=== PATIENT | female | born 1965 | race African-American/Black ===

== ENCOUNTER 2018-10-28 12:37 | Emergency (ER) | payer MEDICARE, OTHER, SELFPAY ==
[2018-10-28 12:40] VITALS: BP 127/84; PULSE 82; RESP 21; TEMP 36.6; O2SAT 97; BMI 35.3
--- NOTE | 2018-10-28 12:56 | DI.US.S_ITS ---
PROCEDURE: US ABDOMEN COMPLETE INDICATIONS: RUQ/EPIGASTRIC PAIN TECHNIQUE: Real-time scanning was performed of the abdominal and retroperitoneal organs, with image documentation. COMPARISON: None. FINDINGS: Liver: Normal in size and echogenicity. No focal liver lesions. Gallbladder: Within normal limits. No cholelithiasis. Biliary ducts: Intrahepatic bile ducts are non-dilated. Extrahepatic bile duct caliber measures 3 mm. Normal is 6-7 mm or less in diameter, or 10 mm or less post-cholecystectomy. Pancreas: Visualized portions of the pancreas are sonographically normal. Spleen: Spleen is normal in size and homogeneous in echotexture. Kidneys: Kidneys are normal in size and echotexture. Right kidney measures 10.0 cm long; left kidney measures 8.4 cm long. No hydronephrosis or nephrolithiasis. No solid masses. Aorta: Visualized aorta is normal in caliber at less than 3 cm. Iliacs: Obscured by bowel gas. IVC: Intrahepatic inferior vena cava is patent. Miscellaneous: No free abdominal fluid. IMPRESSION: No sonographic source for the patient's right upper quadrant pain is evident. There is no cholelithiasis, evidence of cholecystitis, or hydronephrosis. The need for further evaluation utilizing CT may be determined clinically. Dictated by: Migue Olson M.D. on 10/28/2018 at 13:06 Approved by: Migue Olson M.D. on 10/28/2018 at 13:07
--- NOTE | 2018-10-28 13:01 | ED_ITS ---
HPI - Nausea/Vomiting/Diarrhea <RUTHY Holliday - Last Filed: 10/28/18 22:22> General Chief complaint: Nausea/Vomiting/Diarrhea Stated complaint: Throwing up, stomach pains, thrush, rash Time Seen by Provider: 10/28/18 12:39 Source: patient Mode of arrival: ambulatory Limitations: no limitations History of Present Illness HPI Narrative: 52-year-old female with a history of asthma that is a nonsmoker here for complaint of having nausea vomiting that started earlier this morning. She states she is having a hard time keeping down fluids. She also reports having epigastric/right upper quadrant pain that started about the same timeframe. She reports that she has had a fever and chills during the same timeframe. She reports having generalized body aches. She has also had a cough however she thinks this may be due to her asthma. No nasal congestion. She reports having a mild headache as well. She denies any urinary symptoms. She reports having a bowel movement earlier today but was diarrhea. She denies any stressors or relievers of her symptoms. No other concerns or complaints this timeframe. MD complaint: nausea, vomiting, diarrhea and abdominal pain Related Data Previous Rx's Medication Instructions Recorded ondansetron 4 mg PO TID-QID PRN #12 tab 10/28/18 Allergies Allergy/AdvReac Type Severity Reaction Status Date / Time Iodinated Contrast- Oral and Allergy Verified 10/28/18 12:48 IV Dye Review of Systems <RUTHY Holliday - Last Filed: 10/28/18 22:22> Constitutional Reports chills, Reports fever(s), Denies lethargy and Denies weakness Eyes Denies change in vision, Denies eye discharge, Denies irritation and Denies loss of vision ENT Ears, Nose, Mouth, and Throat: Denies change in voice, Denies neck pain and De nies sore throat Cardiovascular Denies chest pain, Denies irregular heart rhythm, Denies lightheadedness, Denies palpitations, Denies dyspnea, Denies dyspnea on exertion and Denies orthopnea Respiratory Denies cough, Denies dyspnea, Denies dyspnea on exertion and Denies wheezing Gastrointestinal Gastrointestinal: Reports abdominal pain, Reports nausea and Reports vomiting Genitourinary Denies hematuria, Denies flank pain, Denies urinary incontinence and Denies urinary urgency Musculoskeletal Denies neck pain Integumentary/Breasts Denies pruritus, Denies erythema, Denies rash and Denies wounds Neurologic Denies confusion, Denies loss of vision and Denies weakness Psychiatric Denies anxiety, Denies confusion, Denies depression, Denies homicidal ideation and Denies suicidal ideation Endocrine Denies palpitations Allergic/Immunologic Denies wheezing PFSH <RUTHY Holliday - Last Filed: 10/28/18 22:22> Social History Smoking Status: Former smoker Social History Smoking Status: Former smoker Exam <RUTHY Holliday - Last Filed: 10/28/18 22:22> Initial Vital Signs Initial Vital Signs: Vital Signs Temperature 97.9 F 10/28/18 12:40 Pulse Rate 82 10/28/18 12:40 Respiratory Rate 21 10/28/18 12:40 Blood Pressure 127/84 10/28/18 12:40 Pulse Oximetry 97 10/28/18 12:40 Const General: cooperative and well developed Nutritional Appearance: well nourished Orientation: alert, awake, oriented x3 and not confused [facility] Mouth: oral mucosae normal and moist mucous membranes Eyes Conjunctivae: conjunctivae normal Sclera: sclerae normal Pupils: PERRL EOM: EOM intact bilaterally Resp Effort & Inspection: normal respiratory effort, able to speak in complete sentences, no respiratory distress and no use of accessory muscles Auscultation: rales, no rhonchi and no wheezes Cardio Rate: regular rate Rhythm: regular rhythm Heart Sounds: no click, no gallops, no murmurs and no rubs GI Inspection: non-distended Palpation: soft, no hepatosplenomegaly, No guarding, No pulsatile mass and tender (Tenderness right upper quadrant) Auscultation: normal bowel sounds General: No CVA tenderness Skin General: no rashes or lesions noted, No jaundice and No petechiae Neuro General: alert, oriented x3, gait normal and no focal motor deficits Speech: speech normal <Kiarra Dorman DO - Last Filed: 10/29/18 09:51> Initial Vital Signs Initial Vital Signs: Vital Signs Temperature 97.9 F 10/28/18 12:40 Pulse Rate 82 10/28/18 12:40 Respiratory Rate 21 10/28/18 12:40 Blood Pressure 127/84 10/28/18 12:40 Pulse Oximetry 97 10/28/18 12:40 Course <RUTHY Holliday - Last Filed: 10/28/18 22:22> Orders Ordered: Discontinued Medications Hydromorphone HCl (Dilaudid) 0.5 mg IV NOW ONE Stop: 10/28/18 12:57 Last Admin: 10/28/18 13:34 Dose: 0.5 mg Sodium Chloride (Normal Saline 0.9%) 1,000 mls @ 1,000 mls/hr IV BOLUS ONE Stop: 10/28/18 13:55 Last Infusion: 10/28/18 14:54 Dose: 0 mls/hr Admin: 10/28/18 13:35 Dose: 1,000 mls/hr Ondansetron HCl (Zofran) 4 mg IV NOW ONE Stop: 10/28/18 13:40 Last Admin: 10/28/18 13:40 Dose: 4 mg Vital Signs - 8 hr 10/28/18 12:40 10/28/18 13:37 Temperature 97.9 F Pulse Rate 82 81 Respiratory Rate 21 18 Blood Pressure 127/84 Blood Pressure [Right Arm] 133/88 Pulse Oximetry 97 99 <Kiarra Dorman DO - Last Filed: 10/29/18 09:51> Orders Ordered: Discontinued Medications Hydromorphone HCl (Dilaudid) 0.5 mg IV NOW ONE Stop: 10/28/18 12:57 Last Admin: 10/28/18 13:34 Dose: 0.5 mg Sodium Chloride (Normal Saline 0.9%) 1,000 mls @ 1,000 mls/hr IV BOLUS ONE Stop: 10/28/18 13:55 Last Infusion: 10/28/18 14:54 Dose: 0 mls/hr Admin: 10/28/18 13:35 Dose: 1,000 mls/hr Ondansetron HCl (Zofran) 4 mg IV NOW ONE Stop: 10/28/18 13:40 Last Admin: 10/28/18 13:40 Dose: 4 mg Vital Signs - 8 hr 10/28/18 12:40 10/28/18 13:37 Temperature 97.9 F Pulse Rate 82 81 Respiratory Rate 21 18 Blood Pressure 127/84 Blood Pressure [Right Arm] 133/88 Pulse Oximetry 97 99 MDM - Nausea/Vomiting/Diarrhea <RUTHY Holliday - Last Filed: 10/28/18 22:22> Lab Data Result diagrams: 10/28/18 13:05 10/28/18 13:05 Lab Results 10/28/18 10/28/18 10/28/18 Range/Units 13:05 13:05 13:05 WBC 7.2 (4.5-11.0) X10^3/uL RBC 4.50 (4.0-5.2) X10^6/uL Hgb 12.9 (12.0-16.0) g/dL Hct 39.3 (36-46) % MCV 87.1 (80-100) fL MCH 28.7 (26-34) PG MCHC 33.0 (30-36) % RDW 14.7 (11.6-14.8) % Plt Count 191 (150-400) X10^3/uL Neut % (Auto) 94.2 H (50-75) % Lymph % (Auto) 2.5 L (25-40) % [place] % (Auto) 2.4 L (3-14) % Eos % (Auto) 0.5 L (2-4) % Baso % (Auto) 0.4 (0-2) % Neut # (Auto) 6800 (4163-7535) /uL Lymph # (Auto) 200 L (5389-7147) /uL [place] # (Auto) 200 (0-900) /uL Eos # (Auto) 0 (0-450) /uL Baso # (Auto) 0 (0-100) /uL Sodium 141 (137-145) mmol/L Potassium 3.8 (3.4-5.1) mmol/L Chloride 109 H (98-107) mmol/L Carbon Dioxide 21 L (22-32) mmol/L BUN 14 (7-17) mg/dL Creatinine 0.80 (0.52-1.04) mg/dL Estimated GFR > 60.0 (>60) mL/min BUN/Creatinine Ratio 17.5 (6-22) Glucose 88 (70-100) mg/dL Lactate (0.7-2.1) mmol/L Calcium 8.7 (8.4-10.2) mg/dL Total Bilirubin 1.3 (0.2-1.3) mg/dL AST 28 (14-36) IU/L ALT 25 (9-52) IU/L Alkaline Phosphatase 65 (38-126) U/L Total Protein 7.7 (6.3-8.2) g/dL Albumin 4.2 (3.5-5.0) g/dL Globulin 3.5 (1.7-4.1) g/dL Albumin/Globulin Ratio 1.2 (1.0-2.8) Lipase 71 (23-300) U/L Procalcitonin 0.06 (<0.5) ng/mL Influenza A & B (PCR) (Negative) 10/28/18 10/28/18 Range/Units 13:05 13:05 WBC (4.5-11.0) X10^3/uL RBC (4.0-5.2) X10^6/uL Hgb (12.0-16.0) g/dL Hct (36-46) % MCV (80-100) fL MCH (26-34) PG MCHC (30-36) % RDW (11.6-14.8) % Plt Count (150-400) X10^3/uL Neut % (Auto) (50-75) % Lymph % (Auto) (25-40) % [place] % (Auto) (3-14) % Eos % (Auto) (2-4) % Baso % (Auto) (0-2) % Neut # (Auto) (0675-1429) /uL Lymph # (Auto) (4681-2609) /uL [place] # (Auto) (0-900) /uL Eos # (Auto) (0-450) /uL Baso # (Auto) (0-100) /uL Sodium (137-145) mmol/L Potassium (3.4-5.1) mmol/L Chloride (98-107) mmol/L Carbon Dioxide (22-32) mmol/L BUN (7-17) mg/dL Creatinine (0.52-1.04) mg/dL Estimated GFR (>60) mL/min BUN/Creatinine Ratio (6-22) Glucose (70-100) mg/dL Lactate 0.9 (0.7-2.1) mmol/L Calcium (8.4-10.2) mg/dL Total Bilirubin (0.2-1.3) mg/dL AST (14-36) IU/L ALT (9-52) IU/L Alkaline Phosphatase (38-126) U/L Total Protein (6.3-8.2) g/dL Albumin (3.5-5.0) g/dL Globulin (1.7-4.1) g/dL Albumin/Globulin Ratio (1.0-2.8) Lipase (23-300) U/L Procalcitonin (<0.5) ng/mL Influenza A & B (PCR) Negative (Negative) Urine Dip Bedside Urine Glucose Negative Bedside Urine Bilirubin - Negative Bedside Urine Ketone +/- 5 Urine Specific [place] 1.025 Bedside Urine Occult Blood - Negative Bedside Urine pH 5.5 Bedside Urine Protein + 30 Bedside Urine Nitrite - Negative Bedside Urine Leukocytes - Negative Esterase Imaging Data US - abdomen: Radiologist's impression: [address] [place] [id number] Ultrasound Report Signed Patient: Danica Hathaway LMR#: [id number] : 1965Acct:[id number] Age/Sex: 52 / FDate of Service: 10/28/18 Loc: ED Accession Number: [id number] Procedure: US abdomen complete Ordering Provider: Moris York PROCEDURE: US ABDOMEN COMPLETE INDICATIONS: RUQ/EPIGASTRIC PAIN TECHNIQUE: Real-time scanning was performed of the abdominal and retroperitoneal organs, with image documentation. COMPARISON: None. FINDINGS: Liver: Normal in size and echogenicity. No focal liver lesions. Gallbladder: Within normal limits. No cholelithiasis. Biliary ducts: Intrahepatic bile ducts are non-dilated. Extrahepatic bile duct caliber measures 3 mm. Normal is 6-7 mm or less in diameter, or 10 mm or less post-cholecystectomy. Pancreas: Visualized portions of the pancreas are sonographically normal. Spleen: Spleen is normal in size and homogeneous in echotexture. Kidneys: Kidneys are normal in size and echotexture. Right kidney measures 10.0 cm long; left kidney measures 8.4 cm long. No hydronephrosis or nephrolithiasis. No solid masses. Aorta: Visualized aorta is normal in caliber at less than 3 cm. Iliacs: Obscured by bowel gas. IVC: Intrahepatic inferior vena cava is patent. Miscellaneous: No free abdominal fluid. IMPRESSION: No sonographic source for the patient's right upper quadrant pain is evident. There is no cholelithiasis, evidence of cholecystitis, or hydronephrosis. The need for further evaluation utilizing CT may be determined clinically. Dictated by: Migue Olson M.D. on 10/28/2018 at 13:06 Approved by: Migue Olson M.D. on 10/28/2018 at 13:07 [facility] Narrative Medical decision making narrative: Abdominal ultrasound was obtained was negative for any acute findings. CBC and Chem panel were obtained and were unremarkable. Urinalysis was negative for urinary tract infection. Lipase was unremarkable. Influenza swab was obtained was also negative. Will treat as a viral illness with Zofran to help with nausea vomiting. For any worsening symptoms return to the emergency room. Follow up with primary care provider. <Kiarra Dorman DO - Last Filed: 10/29/18 09:51> Lab Data Lab Results 10/28/18 10/28/18 10/28/18 Range/Units 13:05 13:05 13:05 WBC 7.2 (4.5-11.0) X10^3/uL RBC 4.50 (4.0-5.2) X10^6/uL Hgb 12.9 (12.0-16.0) g/dL Hct 39.3 (36-46) % MCV 87.1 (80-100) fL MCH 28.7 (26-34) PG MCHC 33.0 (30-36) % RDW 14.7 (11.6-14.8) % Plt Count 191 (150-400) X10^3/uL Neut % (Auto) 94.2 H (50-75) % Lymph % (Auto) 2.5 L (25-40) % [place] % (Auto) 2.4 L (3-14) % Eos % (Auto) 0.5 L (2-4) % Baso % (Auto) 0.4 (0-2) % Neut # (Auto) 6800 (1936-4675) /uL Lymph # (Auto) 200 L (5186-0673) /uL [place] # (Auto) 200 (0-900) /uL Eos # (Auto) 0 (0-450) /uL Baso # (Auto) 0 (0-100) /uL Sodium 141 (137-145) mmol/L Potassium 3.8 (3.4-5.1) mmol/L Chloride 109 H (98-107) mmol/L Carbon Dioxide 21 L (22-32) mmol/L BUN 14 (7-17) mg/dL Creatinine 0.80 (0.52-1.04) mg/dL Estimated GFR > 60.0 (>60) mL/min BUN/Creatinine Ratio 17.5 (6-22) Glucose 88 (70-100) mg/dL Lactate (0.7-2.1) mmol/L Calcium 8.7 (8.4-10.2) mg/dL Total Bilirubin 1.3 (0.2-1.3) mg/dL AST 28 (14-36) IU/L ALT 25 (9-52) IU/L Alkaline Phosphatase 65 (38-126) U/L Total Protein 7.7 (6.3-8.2) g/dL Albumin 4.2 (3.5-5.0) g/dL Globulin 3.5 (1.7-4.1) g/dL Albumin/Globulin Ratio 1.2 (1.0-2.8) Lipase 71 (23-300) U/L Procalcitonin 0.06 (<0.5) ng/mL Influenza A & B (PCR) (Negative) 10/28/18 10/28/18 Range/Units 13:05 13:05 WBC (4.5-11.0) X10^3/uL RBC (4.0-5.2) X10^6/uL Hgb (12.0-16.0) g/dL Hct (36-46) % MCV (80-100) fL MCH (26-34) PG MCHC (30-36) % RDW (11.6-14.8) % Plt Count (150-400) X10^3/uL Neut % (Auto) (50-75) % Lymph % (Auto) (25-40) % [place] % (Auto) (3-14) % Eos % (Auto) (2-4) % Baso % (Auto) (0-2) % Neut # (Auto) (2119-9852) /uL Lymph # (Auto) (9774-7046) /uL [place] # (Auto) (0-900) /uL Eos # (Auto) (0-450) /uL Baso # (Auto) (0-100) /uL Sodium (137-145) mmol/L Potassium (3.4-5.1) mmol/L Chloride (98-107) mmol/L Carbon Dioxide (22-32) mmol/L BUN (7-17) mg/dL Creatinine (0.52-1.04) mg/dL Estimated GFR (>60) mL/min BUN/Creatinine Ratio (6-22) Glucose (70-100) mg/dL Lactate 0.9 (0.7-2.1) mmol/L Calcium (8.4-10.2) mg/dL Total Bilirubin (0.2-1.3) mg/dL AST (14-36) IU/L ALT (9-52) IU/L Alkaline Phosphatase (38-126) U/L Total Protein (6.3-8.2) g/dL Albumin (3.5-5.0) g/dL Globulin (1.7-4.1) g/dL Albumin/Globulin Ratio (1.0-2.8) Lipase (23-300) U/L Procalcitonin (<0.5) ng/mL Influenza A & B (PCR) Negative (Negative) Urine Dip Bedside Urine Glucose Negative Bedside Urine Bilirubin - Negative Bedside Urine Ketone +/- 5 Urine Specific [place] 1.025 Bedside Urine Occult Blood - Negative Bedside Urine pH 5.5 Bedside Urine Protein + 30 Bedside Urine Nitrite - Negative Bedside Urine Leukocytes - Negative Esterase Discharge Plan Departure Patient Disposition: Home Clinical Impression: Nausea & vomiting Qualifiers: Vomiting type: unspecified Vomiting Intractability: non-intractable Qualified Code(s): R11.2 - Nausea with vomiting, unspecified Discharge Date/Time: 10/28/18 14:55 Interventions: ED Discharge Assessment Last Done: 10/28/18 14:54 Instructions: DI for Vomiting -- Adult Activity Restrictions/Additional Instructions: Laboratory results and imaging today were unremarkable. Signs and symptoms presents as a viral illness. You are prescribed Zofran to help with nausea vomiting use as directed. Slowly advance diet as tolerated. Plenty of fluids. For any worsening symptoms return to the emergency room. Follow up with primary care provider. Prescriptions: New ondansetron 4 mg tablet,disintegrating 4 mg PO TID-QID PRN (Reason: nausea and vomiting) Qty: 12 RF: 0 Referrals: [facility] [Provider Group] <Kiarra Dorman DO - Last Filed: 10/29/18 09:51> Cosign ED Attending Pamela Attestation: I was immediately available in the department for consultation. Documentation has been reviewed. I agree with assessment and plan.
[2018-10-28 13:14] LABS: Add Manual Diff / Slide Review NO; Basophils Absolute Auto 0 /uL (0-100); Basophils Percent Auto 0.4 % (0-2); Eosinophils Absolute Auto 0 /uL (0-450); Eosinophils Percent Auto 0.5 % (2-4); Hematocrit 39.3 % (36-46); Hemoglobin 12.9 g/dL (12.0-16.0); Lymphocytes Absolute Auto 200 /uL (1100-4500); Lymphocytes Percent Auto 2.5 % (25-40); Mean Corpuscular Hemoglobin 28.7 PG (26-34); Mean Corpuscular Volume 87.1 fL (80-100); Monocytes Absolute Auto 200 /uL (0-900); Monocytes Percent Auto 2.4 % (3-14); Neutrophils Absolute Auto 6800 /uL (1500-7000); Neutrophils Percent Auto 94.2 % (50-75); Platelet Count 191 X10^3/uL (150-400); Red Cell Distribution Width 14.7 % (11.6-14.8); White Blood Cell Count 7.2 X10^3/uL (4.5-11.0)
[2018-10-28 13:15] VITALS: BP 129/84; PULSE 80; O2SAT 98
[2018-10-28 13:27] LABS: Alanine Aminotransferase 25 IU/L (9-52); Albumin 4.2 g/dL (3.5-5.0); Albumin Globulin Ratio 1.2 (1.0-2.8); Alkaline Phosphatase 65 U/L (38-126); Aspartate Aminotransferase 28 IU/L (14-36); BUN Creatinine Ratio 17.5 (6-22); Bilirubin Total 1.3 mg/dL (0.2-1.3); Blood Urea Nitrogen 14 mg/dL (7-17); Calcium 8.7 mg/dL (8.4-10.2); Carbon Dioxide 21 mmol/L (22-32); Chloride 109 mmol/L (98-107); Estimated Glomerular Filt Rate > 60.0 mL/min (>60); Globulin 3.5 g/dL (1.7-4.1); Glucose 88 mg/dL (70-100); HEMOLYSIS 25 (0-50); Lipase 71 U/L (23-300); Potassium 3.8 mmol/L (3.4-5.1); Sodium 141 mmol/L (137-145); Total Protein 7.7 g/dL (6.3-8.2)
[2018-10-28 13:28] LABS: Influenza A and B by PCR Rapid Negative (Negative); Lactate (Lactic Acid) 0.9 mmol/L (0.7-2.1)
[2018-10-28] MEDS: HYDROMORPHONE 1 MG INJ 0.5 MG IV (13:34)
[2018-10-28] MEDS: SODIUM CHLORIDE 0.9% 1,000 ML 1000 ML IV (13:35)
[2018-10-28 13:37] VITALS: BP 133/88; PULSE 81; RESP 18; O2SAT 99
[2018-10-28] MEDS: ONDANSETRON 4 MG/2 ML INJ IV (13:40)
[2018-10-28 13:58] LABS: Procalcitonin 0.06 ng/mL (<0.5)
[2018-10-28 14:00] VITALS: BP 134/83; PULSE 70; RESP 16; O2SAT 98
== END 2018-10-28 14:55 | disposition home or self-care (01) ==
PROVIDERS: Emergency Provider Nurse Practitioner Family
DX: R11.2 Nausea with vomiting, unspecified (principal); R10.9 Unspecified abdominal pain
CPT/HCPCS: 36591; 76700; 80053; 81003; 83605; 83690; 84145; 85025; 87400; 96361; 96374; 96375; 99283; 99284; J1170; J2405

== ENCOUNTER 2018-10-30 11:53 | Emergency (ER) | payer MEDICARE, OTHER, SELFPAY ==
[2018-10-30 12:12] VITALS: BP 127/89; PULSE 79; RESP 18; TEMP 37.7; O2SAT 100
[2018-10-30 12:43] VITALS: BP 141/93; PULSE 68; O2SAT 99
--- NOTE | 2018-10-30 13:03 | ED_ITS ---
HPI - Abdominal Pain <Jennifer Carlislemer, MANAGEMENT PLANNER-BC - Last Filed: 10/30/18 18:02> General Chief Complaint: Abdominal Pain Stated Complaint: stomach, not holding anything down,headache,nausea Time Seen by Provider: 10/30/18 12:45 Source: patient Mode of arrival: ambulatory Limitations: no limitations History of Present Illness HPI narrative: Patient is a 52-year-old female former smoker with history of rheumatoid arthritis who is a nonsmoker who presents by herself for a chief complaint of abdominal pain vomiting and diarrhea. She states she is unable to keep anything down, take eating any makes her have diarrhea. She was seen here at this facility on 10/28 and discharged with prescription of Zofran as she tested negative for the flu, had normal lab work. She states that the Zofran is making her stomach hurt worse, so she is not taking it. She denies any fevers, but checks in with a temperature of 99.9?. She denies any chest pain or shortness of breath. she states that her abdominal pain is all over, her entire stomach. Related Data Home Medications Medication Instructions Recorded Confirmed adalimumab [Humira Pen] 40 mg SUBCUT DIRECTED 10/30/18 10/30/18 albuterol sulfate [ProAir HFA] 10/30/18 beclomethasone dipropionate [QNASL] 10/30/18 diclofenac sodium 75 mg PO BID 10/30/18 10/30/18 fluticasone furoate-vilanterol 10/30/18 [Breo Ellipta] folic acid 1 mg PO DAILY 10/30/18 10/30/18 hydrocortisone 1 applic TOPICAL TID 10/30/18 10/30/18 medroxyprogesterone 10/30/18 montelukast 10 mg PO DAILY 10/30/18 10/30/18 naloxone [Narcan] 10/30/18 nystatin 10/30/18 oxycodone 30 mg PO QID 10/30/18 10/30/18 oxycodone [OxyContin] 60 mg PO BID 10/30/18 10/30/18 paroxetine HCl 10 mg PO DAILY 10/30/18 10/30/18 Previous Rx's Medication Instructions Recorded ondansetron 4 mg PO TID-QID PRN #12 tab 10/28/18 prednisone 50 mg PO DAILY #5 tab 10/30/18 promethazine 25 mg PO Q4-6H PRN #20 tab 10/30/18 Allergies Allergy/AdvReac Type Severity Reaction Status Date / Time Iodinated Contrast- Oral and Allergy Intermediate Hives Verified 10/30/18 12:16 IV Dye Review of Systems <OSVALDO Garcia - Last Filed: 10/30/18 18:02> Review of Systems GENERAL: See HPI HEENT: Denies sinus pain, ear pain, sore throat, difficulty swallowing, dizziness. RESPIRATORY: Denies dyspnea, cough, wheezing, hemoptysis, sputum. CARDIOVASCULAR: Denies chest pain, palpitations, orthopnea, edema, GASTROINTESTINAL: See HPI : Denies dysuria, frequency, incontinence, hematuria, urinary retention. MUSCULOSKELETAL: denies weakness, joint pain, or bony pain SKIN: Denies rash, skin lesions, or other NEUROLOGIC: Denies weakness, headache, numbness, change in speech, confusion, seizures, incoordination. PSYCHIATRIC: No concerning psychosocial issues. 12 point review of systems is negative except for those stated above PFSH <OSVALDO Garcia - Last Filed: 10/30/18 18:02> Medical History (Updated 10/30/18 @ 16:45 by OSVALDO Garcia) Rheumatoid arteritis (Acute) Social History Smoking Status: Former smoker Social History Smoking Status: Former smoker Exam <OSVALDO Garcia - Last Filed: 10/30/18 18:02> Narrative Exam Narrative: GENERAL: This is a well-nourished, well-developed patient, lying on stretcher HEAD: Atraumatic. Normocephalic. No temporal or scalp tenderness. EYES: Pupils equal round and reactive. Extraocular motions intact. No scleral icterus. No injection or drainage. ENT: Nose without bleeding, purulent drainage or septal hematoma. Throat without erythema, tonsillar hypertrophy or exudate. Uvula midline. Airway patent. NECK: Trachea midline. No JVD or lymphadenopathy. Supple, nontender, no meningeal signs. CARDIOVASCULAR: Regular rate and rhythm without murmurs, gallops, or rubs. RESPIRATORY: Clear to auscultation. Breath sounds equal bilaterally. No wheezes, rales, or rhonchi. No cough. No increased respiratory effort. GASTROINTESTINAL: Abdomen soft, nondistended. No hepato-splenomegaly, or palpable masses. diffuse tenderness to palpation. EXTREMITIES: No clubbing, cyanosis, or edema. No joint tenderness, effusion, or edema noted. BACK: Nontender without deformity or crepitance. No flank tenderness. NEURO: AOx3. SKIN: No rash or erythema. Initial Vital Signs Initial Vital Signs: Vital Signs Temperature 99.9 F H 10/30/18 12:12 Pulse Rate 79 10/30/18 12:12 Respiratory Rate 18 10/30/18 12:12 Blood Pressure 127/89 10/30/18 12:12 Pulse Oximetry 100 10/30/18 12:12 <Jennifer Diehl DO - Last Filed: 10/30/18 19:28> Initial Vital Signs Initial Vital Signs: Vital Signs Temperature 99.9 F H 10/30/18 12:12 Pulse Rate 79 10/30/18 12:12 Respiratory Rate 18 10/30/18 12:12 Blood Pressure 127/89 10/30/18 12:12 Pulse Oximetry 100 10/30/18 12:12 Course <SILVINO Garcia-BC - Last Filed: 10/30/18 18:02> Course Narrative: I checked on the patient several times throughout her stay in the emergency department. Orders Ordered: ED Orders 10/30/18 13:15 Amylase Stat Complete Blood Count AUTO DIFF Stat Comprehensive Metabolic Panel Stat Lactate (Lactic Acid) Stat Lipase Stat Partial Thromboplastin Time Stat Prothrombin Time INR Stat 10/30/18 14:04 CT abdomen pelvis w con Stat Discontinued Medications Diphenhydramine HCl (Benadryl) 50 mg IV NOW ONE Stop: 10/30/18 14:05 Last Admin: 10/30/18 14:30 Dose: 50 mg Hydromorphone HCl (Dilaudid) 0.5 mg IV NOW ONE Stop: 10/30/18 13:05 Last Admin: 10/30/18 13:10 Dose: 0.5 mg Hydromorphone HCl (Dilaudid) 0.5 mg IV NOW ONE Stop: 10/30/18 15:46 Last Admin: 10/30/18 16:05 Dose: 0.5 mg Sodium Chloride (Normal Saline 0.9%) 1,000 mls @ 1,000 mls/hr IV BOLUS ONE Stop: 10/30/18 13:24 Last Infusion: 10/30/18 14:30 Dose: 0 mls/hr Admin: 10/30/18 13:11 Dose: 1,000 mls/hr Famotidine (Pepcid) 20 mg in 50 mls @ 200 mls/hr IV NOW ONE Stop: 10/30/18 14:18 Last Infusion: 10/30/18 14:47 Dose: 0 mls/hr Admin: 10/30/18 14:29 Dose: 200 mls/hr Sodium Chloride (Normal Saline 0.9%) 1,000 mls @ 1,000 mls/hr IV BOLUS ONE Stop: 10/30/18 16:56 Last Infusion: 10/30/18 16:46 Dose: 0 mls/hr Admin: 10/30/18 16:08 Dose: 1,000 mls/hr Methylprednisolone (Solu-Medrol 125 Mg Vial) 125 mg IV NOW ONE Stop: 10/30/18 14:05 Last Admin: 10/30/18 14:30 Dose: 125 mg Ondansetron HCl (Zofran) 4 mg IV NOW ONE Stop: 10/30/18 12:25 Last Admin: 10/30/18 13:09 Dose: 4 mg Ondansetron HCl (Zofran) 4 mg IV NOW ONE Stop: 10/30/18 13:05 Last Admin: 10/30/18 14:30 Dose: Not Given Promethazine HCl (Phenadoz) 25 mg SD NOW ONE Stop: 10/30/18 15:46 Last Admin: 10/30/18 15:57 Dose: Not Given Promethazine HCl (Phenadoz) 25 mg PO NOW ONE Stop: 10/30/18 15:58 Last Admin: 10/30/18 16:46 Dose: Not Given Promethazine HCl (Phenergan) 25 mg PO NOW ONE Stop: 10/30/18 16:16 Last Admin: 10/30/18 16:10 Dose: 25 mg Vital Signs - 8 hr 10/30/18 12:12 10/30/18 12:43 10/30/18 16:45 Temperature 99.9 F H Pulse Rate 79 68 64 Respiratory Rate 18 16 Blood Pressure 127/89 Blood Pressure [Left Arm] 141/93 H 149/86 H Pulse Oximetry 100 99 100 10/30/18 17:52 Temperature 98.7 F Pulse Rate 72 Respiratory Rate 18 Blood Pressure 134/64 Blood Pressure [Left Arm] Pulse Oximetry 99 <Jennifer Bhatia Jeovanyshweta, DO - Last Filed: 10/30/18 19:28> Orders Ordered: ED Orders 10/30/18 13:15 Amylase Stat Complete Blood Count AUTO DIFF Stat Comprehensive Metabolic Panel Stat Lactate (Lactic Acid) Stat Lipase Stat Partial Thromboplastin Time Stat Prothrombin Time INR Stat 10/30/18 14:04 CT abdomen pelvis w con Stat Discontinued Medications Diphenhydramine HCl (Benadryl) 50 mg IV NOW ONE Stop: 10/30/18 14:05 Last Admin: 10/30/18 14:30 Dose: 50 mg Hydromorphone HCl (Dilaudid) 0.5 mg IV NOW ONE Stop: 10/30/18 13:05 Last Admin: 10/30/18 13:10 Dose: 0.5 mg Hydromorphone HCl (Dilaudid) 0.5 mg IV NOW ONE Stop: 10/30/18 15:46 Last Admin: 10/30/18 16:05 Dose: 0.5 mg Sodium Chloride (Normal Saline 0.9%) 1,000 mls @ 1,000 mls/hr IV BOLUS ONE Stop: 10/30/18 13:24 Last Infusion: 10/30/18 14:30 Dose: 0 mls/hr Admin: 10/30/18 13:11 Dose: 1,000 mls/hr Famotidine (Pepcid) 20 mg in 50 mls @ 200 mls/hr IV NOW ONE Stop: 10/30/18 14:18 Last Infusion: 10/30/18 14:47 Dose: 0 mls/hr Admin: 10/30/18 14:29 Dose: 200 mls/hr Sodium Chloride (Normal Saline 0.9%) 1,000 mls @ 1,000 mls/hr IV BOLUS ONE Stop: 10/30/18 16:56 Last Infusion: 10/30/18 16:46 Dose: 0 mls/hr Admin: 10/30/18 16:08 Dose: 1,000 mls/hr Methylprednisolone (Solu-Medrol 125 Mg Vial) 125 mg IV NOW ONE Stop: 10/30/18 14:05 Last Admin: 10/30/18 14:30 Dose: 125 mg Ondansetron HCl (Zofran) 4 mg IV NOW ONE Stop: 10/30/18 12:25 Last Admin: 10/30/18 13:09 Dose: 4 mg Ondansetron HCl (Zofran) 4 mg IV NOW ONE Stop: 10/30/18 13:05 Last Admin: 10/30/18 14:30 Dose: Not Given Promethazine HCl (Phenadoz) 25 mg SD NOW ONE Stop: 10/30/18 15:46 Last Admin: 10/30/18 15:57 Dose: Not Given Promethazine HCl (Phenadoz) 25 mg PO NOW ONE Stop: 10/30/18 15:58 Last Admin: 10/30/18 16:46 Dose: Not Given Promethazine HCl (Phenergan) 25 mg PO NOW ONE Stop: 10/30/18 16:16 Last Admin: 10/30/18 16:10 Dose: 25 mg Vital Signs - 8 hr 10/30/18 12:12 10/30/18 12:43 10/30/18 16:45 Temperature 99.9 F H Pulse Rate 79 68 64 Respiratory Rate 18 16 Blood Pressure 127/89 Blood Pressure [Left Arm] 141/93 H 149/86 H Pulse Oximetry 100 99 100 10/30/18 17:52 Temperature 98.7 F Pulse Rate 72 Respiratory Rate 18 Blood Pressure 134/64 Blood Pressure [Left Arm] Pulse Oximetry 99 MDM - Abdominal Pain <SILVINO Garcia-BC - Last Filed: 10/30/18 18:02> Lab Data Result diagrams: 10/30/18 13:15 10/30/18 13:15 Lab Results 10/30/18 10/30/18 10/30/18 Range/Units 13:15 13:15 13:15 WBC 7.0 (4.5-11.0) X10^3/uL RBC 4.14 (4.0-5.2) X10^6/uL Hgb 11.8 L (12.0-16.0) g/dL Hct 36.6 (36-46) % MCV 88.3 (80-100) fL MCH 28.5 (26-34) PG MCHC 32.3 (30-36) % RDW 14.6 (11.6-14.8) % Plt Count 176 (150-400) X10^3/uL Neut % (Auto) 61.3 (50-75) % Lymph % (Auto) 28.7 (25-40) % [place] % (Auto) 8.8 (3-14) % Eos % (Auto) 0.8 L (2-4) % Baso % (Auto) 0.4 (0-2) % Neut # (Auto) 4300 (5384-7580) /uL Lymph # (Auto) 2000 (1910-8146) /uL [place] # (Auto) 600 (0-900) /uL Eos # (Auto) 100 (0-450) /uL Baso # (Auto) 0 (0-100) /uL PT 12.7 (10.1-12.7) SECONDS INR 1.1 (0.9-1.3) APTT 31 (26.4-36.2) SECONDS Sodium 140 (137-145) mmol/L Potassium 4.0 (3.4-5.1) mmol/L Chloride 110 H (98-107) mmol/L Carbon Dioxide 20 L (22-32) mmol/L BUN 11 (7-17) mg/dL Creatinine 0.90 (0.52-1.04) mg/dL Estimated GFR > 60.0 (>60) mL/min BUN/Creatinine Ratio 12.2 (6-22) Glucose 86 (70-100) mg/dL Lactate (0.7-2.1) mmol/L Calcium 8.0 L (8.4-10.2) mg/dL Total Bilirubin 0.2 (0.2-1.3) mg/dL AST 23 (14-36) IU/L ALT 28 (9-52) IU/L Alkaline Phosphatase 53 (38-126) U/L Total Protein 6.5 (6.3-8.2) g/dL Albumin 3.4 L (3.5-5.0) g/dL Globulin 3.1 (1.7-4.1) g/dL Albumin/Globulin Ratio 1.1 (1.0-2.8) Amylase (30-110) U/L Lipase 80 (23-300) U/L 10/30/18 10/30/18 Range/Units 13:15 13:15 WBC (4.5-11.0) X10^3/uL RBC (4.0-5.2) X10^6/uL Hgb (12.0-16.0) g/dL Hct (36-46) % MCV (80-100) fL MCH (26-34) PG MCHC (30-36) % RDW (11.6-14.8) % Plt Count (150-400) X10^3/uL Neut % (Auto) (50-75) % Lymph % (Auto) (25-40) % [place] % (Auto) (3-14) % Eos % (Auto) (2-4) % Baso % (Auto) (0-2) % Neut # (Auto) (4453-4588) /uL Lymph # (Auto) (6858-1709) /uL [place] # (Auto) (0-900) /uL Eos # (Auto) (0-450) /uL Baso # (Auto) (0-100) /uL PT (10.1-12.7) SECONDS INR (0.9-1.3) APTT (26.4-36.2) SECONDS Sodium (137-145) mmol/L Potassium (3.4-5.1) mmol/L Chloride (98-107) mmol/L Carbon Dioxide (22-32) mmol/L BUN (7-17) mg/dL Creatinine (0.52-1.04) mg/dL Estimated GFR (>60) mL/min BUN/Creatinine Ratio (6-22) Glucose (70-100) mg/dL Lactate 0.7 (0.7-2.1) mmol/L Calcium (8.4-10.2) mg/dL Total Bilirubin (0.2-1.3) mg/dL AST (14-36) IU/L ALT (9-52) IU/L Alkaline Phosphatase (38-126) U/L Total Protein (6.3-8.2) g/dL Albumin (3.5-5.0) g/dL Globulin (1.7-4.1) g/dL Albumin/Globulin Ratio (1.0-2.8) Amylase 68 (30-110) U/L Lipase (23-300) U/L Point of care testing: Urine Dip Bedside Urine Glucose Negative Bedside Urine Bilirubin - Negative Bedside Urine Ketone ++ 40 Urine Specific [place] 1.020 Bedside Urine Occult Blood - Negative Bedside Urine pH 6.0 Bedside Urine Protein + 30 Bedside Urine Urobilinogen - Negative Bedside Urine Nitrite - Negative Bedside Urine Leukocytes - Negative Esterase Imaging Data CT scan - abdomen: Radiologist's impression: [address] [address] [address] Scan Report Signed Patient: Danica Hathaway LMR#: [id number] : 1965Acct:[id number] Age/Sex: 52 / FDate of Service: 10/30/18 Loc: ED Accession Number: [id number] Procedure: CT abdomen pelvis w con Ordering Provider: Jennifer Shi MANAGEMENT PLANNER-BC PROCEDURE: CT ABDOMEN PELVIS W CON INDICATIONS: abd pain, low grade fevers TECHNIQUE: After the administration of oral and intravenous contrast, 5 mm thick sections acquired from the diaphragms to the symphysis. 5 mm thick coronal and sagittal reformats were performed. For radiation dose reduction, the following was used: automated exposure control, adjustment of mA and/or kV according to patient size. COMPARISON: [facility], [place], US ABDOMEN COMPLETE, 10/28/2018, 13:19. FINDINGS: Image quality: Excellent. ABDOMEN: Lung bases: There is mild dependent atelectasis. Heart size is normal. Solid organs: There is mild focal fatty infiltration in the anterior left hepatic lobe. Gallbladder appears within normal limits without calcified gallstones. Biliary system is non-dilated. Pancreas enhances normally. Spleen is normal in size and enhancement. No adrenal nodules. Kidneys are normal in size and enhancement, without hydronephrosis. Peritoneum and bowel: Stomach and small bowel loops are normal in caliber and wall thickness. The appendix is normal in appearance. There is colonic diverticulosis without acute diverticulitis. There is mild segmental wall thickening in the sigmoid colon but evaluation is limited due to nondistention. No free fluid or air. Nodes and vessels: No retroperitoneal or mesenteric adenopathy. Aorta and inferior vena cava are normal in caliber. Miscellaneous: No ventral hernias. PELVIS: Genitourinary: Bladder wall thickness is normal. The uterus is enlarged and heterogeneous in appearance for multiple heterogeneous enhancing mass lesions likely representing fibroids. No largest measures up to approximately 5.8 cm within the ventral myometrium. Miscellaneous: No inguinal hernias or adenopathy. Bones: No suspicious bony lesions. No vertebral body compression fractures. IMPRESSION: 1. Mild segmental wall thickening of the sigmoid colon may be artifactual due to nondistention artifact a mild infectious or inflammatory colitis. 2. Colonic diverticulosis without acute diverticulitis. No evidence of acute appendicitis. 3. Heterogeneous enlargement of the uterus with multiple heterogeneous areas of enhancement likely representing fibroids. If clinically indicated, further eval uation may be obtained with pelvic ultrasound. Dictated by: Genaro Castillo M.D. on 10/30/2018 at 15:08 Approved by: Genaro Castillo M.D. on 10/30/2018 at 15:12 [facility] Narrative Medical decision making narrative: Patient is a 52-year-old female who presents with chief complaint of abdominal pain, vomiting diarrhea. She was given IV fluids as well as medication for pain and nausea in the emergency department. Of note she did not vomit or have any episode of diarrhea during her stay in the emergency department. Basic labs were obtained, and she did not exhibit an elevated white blood cell count. Given her continued abdominal pain vomiting and reported inability to keep down fluids, we obtained a CT scan with pain medications due to her allergy to contrast dye. This illustrate a colitis. She was given a prescription of steroids in the emergency department as well as a prescription of Phenergan. I discussed that she needs close follow-up with her primary care provider if she is not improving in the next few days. We discussed the positive ability of a colonoscopy. We did discuss the possibility of a stool culture, but she did not have any stool in the emergency department. Furthermore her primary care provider is in [place]. She was able to pass a p.o. trial in the emergency department prior to discharge. she was ambulating steadily around the emergency department, appeared nontoxic throughout her stay in the emergency department. <Jennifer Diehl, DO - Last Filed: 10/30/18 19:28> Lab Data Lab Results 10/30/18 10/30/18 10/30/18 Range/Units 13:15 13:15 13:15 WBC 7.0 (4.5-11.0) X10^3/uL RBC 4.14 (4.0-5.2) X10^6/uL Hgb 11.8 L (12.0-16.0) g/dL Hct 36.6 (36-46) % MCV 88.3 (80-100) fL MCH 28.5 (26-34) PG MCHC 32.3 (30-36) % RDW 14.6 (11.6-14.8) % Plt Count 176 (150-400) X10^3/uL Neut % (Auto) 61.3 (50-75) % Lymph % (Auto) 28.7 (25-40) % [place] % (Auto) 8.8 (3-14) % Eos % (Auto) 0.8 L (2-4) % Baso % (Auto) 0.4 (0-2) % Neut # (Auto) 4300 (8246-1018) /uL Lymph # (Auto) 2000 (8805-1133) /uL [place] # (Auto) 600 (0-900) /uL Eos # (Auto) 100 (0-450) /uL Baso # (Auto) 0 (0-100) /uL PT 12.7 (10.1-12.7) SECONDS INR 1.1 (0.9-1.3) APTT 31 (26.4-36.2) SECONDS Sodium 140 (137-145) mmol/L Potassium 4.0 (3.4-5.1) mmol/L Chloride 110 H (98-107) mmol/L Carbon Dioxide 20 L (22-32) mmol/L BUN 11 (7-17) mg/dL Creatinine 0.90 (0.52-1.04) mg/dL Estimated GFR > 60.0 (>60) mL/min BUN/Creatinine Ratio 12.2 (6-22) Glucose 86 (70-100) mg/dL Lactate (0.7-2.1) mmol/L Calcium 8.0 L (8.4-10.2) mg/dL Total Bilirubin 0.2 (0.2-1.3) mg/dL AST 23 (14-36) IU/L ALT 28 (9-52) IU/L Alkaline Phosphatase 53 (38-126) U/L Total Protein 6.5 (6.3-8.2) g/dL Albumin 3.4 L (3.5-5.0) g/dL Globulin 3.1 (1.7-4.1) g/dL Albumin/Globulin Ratio 1.1 (1.0-2.8) Amylase (30-110) U/L Lipase 80 (23-300) U/L 10/30/18 10/30/18 Range/Units 13:15 13:15 WBC (4.5-11.0) X10^3/uL RBC (4.0-5.2) X10^6/uL Hgb (12.0-16.0) g/dL Hct (36-46) % MCV (80-100) fL MCH (26-34) PG MCHC (30-36) % RDW (11.6-14.8) % Plt Count (150-400) X10^3/uL Neut % (Auto) (50-75) % Lymph % (Auto) (25-40) % [place] % (Auto) (3-14) % Eos % (Auto) (2-4) % Baso % (Auto) (0-2) % Neut # (Auto) (2121-1185) /uL Lymph # (Auto) (2980-8055) /uL [place] # (Auto) (0-900) /uL Eos # (Auto) (0-450) /uL Baso # (Auto) (0-100) /uL PT (10.1-12.7) SECONDS INR (0.9-1.3) APTT (26.4-36.2) SECONDS Sodium (137-145) mmol/L Potassium (3.4-5.1) mmol/L Chloride (98-107) mmol/L Carbon Dioxide (22-32) mmol/L BUN (7-17) mg/dL Creatinine (0.52-1.04) mg/dL Estimated GFR (>60) mL/min BUN/Creatinine Ratio (6-22) Glucose (70-100) mg/dL Lactate 0.7 (0.7-2.1) mmol/L Calcium (8.4-10.2) mg/dL Total Bilirubin (0.2-1.3) mg/dL AST (14-36) IU/L ALT (9-52) IU/L Alkaline Phosphatase (38-126) U/L Total Protein (6.3-8.2) g/dL Albumin (3.5-5.0) g/dL Globulin (1.7-4.1) g/dL Albumin/Globulin Ratio (1.0-2.8) Amylase 68 (30-110) U/L Lipase (23-300) U/L Point of care testing: Urine Dip Bedside Urine Glucose Negative Bedside Urine Bilirubin - Negative Bedside Urine Ketone ++ 40 Urine Specific [place] 1.020 Bedside Urine Occult Blood - Negative Bedside Urine pH 6.0 Bedside Urine Protein + 30 Bedside Urine Urobilinogen - Negative Bedside Urine Nitrite - Negative Bedside Urine Leukocytes - Negative Esterase Discharge Plan Departure Patient Disposition: Home Clinical Impression: Colitis Nausea & vomiting Qualifiers: Vomiting type: unspecified Vomiting Intractability: non-intractable Qualified Code(s): R11.2 - Nausea with vomiting, unspecified Discharge Date/Time: 10/30/18 17:52 Interventions: ED Discharge Assessment Last Done: 10/30/18 17:52 Instructions: DI for Nausea -- Adult, DI for Vomiting -- Adult, DI for Colitis Activity Restrictions/Additional Instructions: Given the colitis on your CT scan, given you a burst of steroids. I am also giving a medication called Phenergan for nausea. The aware this can make you sleepy and do not combine it with your pain medication. Please follow up with primary care provider in the next few days. If this does not get better, you may need a scope. Please push small amounts of clear liquids in order to stay hydrated. Do not drink too much at once as this may make your nausea and vomiting worse. Prescriptions: New prednisone 50 mg tablet 50 mg PO DAILY Qty: 5 RF: 0 promethazine 25 mg tablet 25 mg PO Q4-6H PRN (Reason: nausea and vomiting) Qty: 20 RF: 0 No Action ondansetron 4 mg tablet,disintegrating 4 mg PO TID-QID PRN (Reason: nausea and vomiting) Qty: 12 RF: 0 nystatin 100,000 unit/mL suspension RF: 0 paroxetine HCl 10 mg tablet 10 mg PO DAILY RF: 0 diclofenac sodium 75 mg tablet,delayed release (DR/EC) 75 mg PO BID RF: 0 folic acid 1 mg tablet 1 mg PO DAILY RF: 0 montelukast 10 mg tablet 10 mg PO DAILY RF: 0 oxycodone 30 mg tablet 30 mg PO QID RF: 0 albuterol sulfate [ProAir HFA] 90 mcg/actuation HFA aerosol inhaler RF: 0 hydrocortisone 2.5 % ointment 1 applic topical TID RF: 0 medroxyprogesterone 150 mg/mL syringe RF: 0 Humira Pen 40 mg/0.8 mL pen injector kit 40 mg subcut DIRECTED RF: 0 QNASL 80 mcg/actuation HFA aerosol inhaler RF: 0 Breo Ellipta 200-25 mcg/dose blister with device RF: 0 oxycodone [OxyContin] 60 mg tablet extended release 12hr 60 mg PO BID RF: 0 Narcan 4 mg/actuation spray,non-aerosol RF: 0 <Jennifer Diehl DO - Last Filed: 10/30/18 19:28> Cosign ED Attending Cosignature Attestation: I was immediately available in the department for consultation. This documentation has been reviewed and I agree with assessment and plan. Supervised by Jennifer Diehl DO
[2018-10-30] MEDS: ONDANSETRON 4 MG/2 ML INJ IV (13:09)
[2018-10-30] MEDS: HYDROMORPHONE 1 MG INJ 0.5 MG IV ×2 (13:10→16:05)
[2018-10-30] MEDS: SODIUM CHLORIDE 0.9% 1,000 ML 1000 ML IV ×2 (13:11→16:08)
[2018-10-30 13:24] LABS: Add Manual Diff / Slide Review NO; Basophils Absolute Auto 0 /uL (0-100); Basophils Percent Auto 0.4 % (0-2); Eosinophils Absolute Auto 100 /uL (0-450); Eosinophils Percent Auto 0.8 % (2-4); Hematocrit 36.6 % (36-46); Hemoglobin 11.8 g/dL (12.0-16.0); Lymphocytes Absolute Auto 2000 /uL (1100-4500); Lymphocytes Percent Auto 28.7 % (25-40); Mean Corpuscular HGB Conc 32.3 % (30-36); Mean Corpuscular Hemoglobin 28.5 PG (26-34); Mean Corpuscular Volume 88.3 fL (80-100); Monocytes Absolute Auto 600 /uL (0-900); Monocytes Percent Auto 8.8 % (3-14); Neutrophils Absolute Auto 4300 /uL (1500-7000); Neutrophils Percent Auto 61.3 % (50-75); Platelet Count 176 X10^3/uL (150-400); Red Blood Cell Count 4.14 X10^6/uL (4.0-5.2); Red Cell Distribution Width 14.6 % (11.6-14.8)
[2018-10-30 13:38] LABS: INR 1.1 (0.9-1.3); Prothrombin Time 12.7 SECONDS (10.1-12.7)
[2018-10-30 13:41] LABS: PTT Partial Thromboplastin Tim 31 SECONDS (26.4-36.2)
[2018-10-30 13:44] LABS: Lactate (Lactic Acid) 0.7 mmol/L (0.7-2.1)
[2018-10-30 13:45] LABS: Alanine Aminotransferase 28 IU/L (9-52); Albumin 3.4 g/dL (3.5-5.0); Albumin Globulin Ratio 1.1 (1.0-2.8); Alkaline Phosphatase 53 U/L (38-126); Amylase 68 U/L (30-110); Aspartate Aminotransferase 23 IU/L (14-36); BUN Creatinine Ratio 12.2 (6-22); Bilirubin Total 0.2 mg/dL (0.2-1.3); Blood Urea Nitrogen 11 mg/dL (7-17); Carbon Dioxide 20 mmol/L (22-32); Chloride 110 mmol/L (98-107); Estimated Glomerular Filt Rate > 60.0 mL/min (>60); Globulin 3.1 g/dL (1.7-4.1); Glucose 86 mg/dL (70-100); HEMOLYSIS < 15 (0-50); Lipase 80 U/L (23-300); Sodium 140 mmol/L (137-145); Total Protein 6.5 g/dL (6.3-8.2)
--- NOTE | 2018-10-30 14:04 | DI.CT.S_ITS ---
PROCEDURE: CT ABDOMEN PELVIS W CON INDICATIONS: abd pain, low grade fevers TECHNIQUE: After the administration of oral and intravenous contrast, 5 mm thick sections acquired from the diaphragms to the symphysis. 5 mm thick coronal and sagittal reformats were performed. For radiation dose reduction, the following was used: automated exposure control, adjustment of mA and/or kV according to patient size. COMPARISON: [facility], US, US ABDOMEN COMPLETE, 10/28/2018, 13:19. FINDINGS: Image quality: Excellent. ABDOMEN: Lung bases: There is mild dependent atelectasis. Heart size is normal. Solid organs: There is mild focal fatty infiltration in the anterior left hepatic lobe. Gallbladder appears within normal limits without calcified gallstones. Biliary system is non-dilated. Pancreas enhances normally. Spleen is normal in size and enhancement. No adrenal nodules. Kidneys are normal in size and enhancement, without hydronephrosis. Peritoneum and bowel: Stomach and small bowel loops are normal in caliber and wall thickness. The appendix is normal in appearance. There is colonic diverticulosis without acute diverticulitis. There is mild segmental wall thickening in the sigmoid colon but evaluation is limited due to nondistention. No free fluid or air. Nodes and vessels: No retroperitoneal or mesenteric adenopathy. Aorta and inferior vena cava are normal in caliber. Miscellaneous: No ventral hernias. PELVIS: Genitourinary: Bladder wall thickness is normal. The uterus is enlarged and heterogeneous in appearance for multiple heterogeneous enhancing mass lesions likely representing fibroids. No largest measures up to approximately 5.8 cm within the ventral myometrium. Miscellaneous: No inguinal hernias or adenopathy. Bones: No suspicious bony lesions. No vertebral body compression fractures. IMPRESSION: 1. Mild segmental wall thickening of the sigmoid colon may be artifactual due to nondistention artifact a mild infectious or inflammatory colitis. 2. Colonic diverticulosis without acute diverticulitis. No evidence of acute appendicitis. 3. Heterogeneous enlargement of the uterus with multiple heterogeneous areas of enhancement likely representing fibroids. If clinically indicated, further evaluation may be obtained with pelvic ultrasound. Dictated by: Genaro Castillo M.D. on 10/30/2018 at 15:08 Approved by: Genaro Castillo M.D. on 10/30/2018 at 15:12
[2018-10-30] MEDS: FAMOTIDINE 20 MG/50 ML PIGGYBACK 200 MG IV (14:29)
[2018-10-30] MEDS: methylPREDNISolone 125 MG/2 ML VIAL IV (14:30)
[2018-10-30] MEDS: diphenhydrAMINE 50 MG/ML VIAL IV (14:30)
[2018-10-30] MEDS: PROMETHAZINE 25 MG TABLET PO (16:10)
[2018-10-30 16:45] VITALS: BP 149/86; PULSE 64; RESP 16; O2SAT 100
--- NOTE | 2018-10-30 16:56 | PC.NURSE ---
Patient tolerating ice chip and water; No liquid stools or emesis while in the hospital;
[2018-10-30 17:52] VITALS: BP 134/64; PULSE 72; RESP 18; TEMP 37.1; O2SAT 99
== END 2018-10-30 17:52 | disposition home or self-care (01) ==
PROVIDERS: Emergency Medicine; Emergency Provider Nurse Practitioner Family
DX: K52.9 Noninfective gastroenteritis and colitis, unspecified (principal); R11.2 Nausea with vomiting, unspecified
CPT/HCPCS: 36415; 74177; 80053; 81003; 82150; 83605; 83690; 85025; 85610; 85730; 96361; 96365; 96375; 96376; 99285; J1170; J1200; J2405; J2930; Q9967